=== PATIENT | female | born 1960 | race Two or more races ===

== ENCOUNTER 2022-07-25 11:40 | Emergency (ER) | payer BC ==
[~2022-07-25] VITALS: Ht 157.5 cm; Wt 63.5 kg
[2022-07-25] MEDS ORDERED: METOPROLOL SUCC50 MG PO (11:56)
[2022-07-25] MEDS ORDERED: GLIPIZIDE ER10 MG PO (11:56)
[2022-07-25] MEDS ORDERED: METFORMIN HCL500 M1 PO (11:56)
[2022-07-25] MEDS ORDERED: ATORVASTATIN CA10 MG PO (11:56)
[2022-07-25] MEDS ORDERED: CANDESARTAN CILE8 M1 PO (11:56)
== END 2022-07-25 14:36 | disposition home or self-care (01) ==
LOC: ER 11:40
DX: K21.00 Gastro-esophageal reflux disease with esophagitis, without bleeding (principal)